=== PATIENT | female | born 1990 | race Caucasian/White ===

== ENCOUNTER 2017-06-03 14:35 | Emergency (ER) | payer SELFPAY ==
[~2017-06-03] VITALS: Ht 165.1 cm; Wt 76.1 kg
[2017-06-03 14:43] VITALS: BP 132/78
== END 2017-06-03 15:15 | disposition home or self-care (01) ==
LOC: ED 15:08
DX: L03.211 Cellulitis of face (principal); F17.210 Nicotine dependence, cigarettes, uncomplicated; F31.9 Bipolar disorder, unspecified; Z59.0 Homelessness; F20.9 Schizophrenia, unspecified
CPT/HCPCS: 99283